=== PATIENT | male | born 1965 | race Two or more races ===

== ENCOUNTER 2021-10-31 20:00 | Emergency (ER) | payer SELFPAY ==
[~2021-10-31] VITALS: Ht 180.3 cm; Wt 91.0 kg
[2021-10-31] MEDS ORDERED: traMADol 50 MG TABLET PO ONE (20:45)
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
[2021-10-31 21:50] VITALS: BP 156/88
== END 2021-10-31 21:50 | disposition home or self-care (01) ==
LOC: ER 20:00
DX: S60.211A Contusion of right wrist, initial encounter (principal); Z88.5 Allergy status to narcotic agent; Z88.6 Allergy status to analgesic agent; V49.88XA Car occupant (driver) (passenger) injured in other specified transport accidents, initial encounter; Y92.488 Other paved roadways as the place of occurrence of the external cause; Y93.89 Activity, other specified; Y99.8 Other external cause status
CPT/HCPCS: 29125; 73090; 73130; 99284